=== PATIENT | male | born 1990 | race Caucasian/White ===

== ENCOUNTER 2020-05-31 00:01 | Emergency (ER) | payer SELFPAY ==
[~2020-05-31] VITALS: Ht 180.3 cm; Wt 93.2 kg
[2020-05-31 00:01] VITALS: BP 146/83
--- NOTE | 2020-05-31 00:03 | PHYS DOC ---
Past History Past Medical History: No Pertinent History, Bronchitis, Pneumonia Past Surgical History: No Surgical History Smoking: Cigarettes, Greater than 1 pack/day Alcohol Use: Occasionally Drug Use: None General Adult HPI: HPI: " I been sick since sunday.. coughing up stuff,,.. wheezing.. ..I do somke...".." Some stuff is coming up... but it almost like I got walking pneumonia or bronchitis..." Patient is a 30 year old male who presents with above hx and complaints of persistent cough with minimal production. Patient has had subjective feelings of fever. Patient has had previous episodes of bronchitis. Patient does smoke tobacco. No use immunosuppression. No history of recent travel. No specific ill contacts. Patient does work in [employer]. Patient does have a history of some seasonal allergies are most prevalent in the spring. Review of Systems: Review of Systems: Constitutional: Denies fever or chills Eyes: Denies change in visual acuity HENT: Denies nasal congestion or sore throat Respiratory: History of cough and wheezing Cardiovascular: Denies chest pain or edema GI: Denies abdominal pain, nausea, vomiting, bloody stools or diarrhea : Denies dysuria Musculoskeletal: Denies back pain or joint pain Integument: Denies rash Neurologic: Denies headache, focal weakness or sensory changes Endocrine: Denies polyuria or polydipsia Lymphatic: Denies swollen glands Psychiatric: Denies depression or anxiety Family History: Family History: Noncontributory Current Medications: Current Meds: See nursing for home meds Allergies: Allergies: Allergies Coded Allergies Type Severity Reaction Last Updated Verified No Known Drug Allergies 02/24/13 No Physical Exam: PE: Constitutional: Moderate acute distress, non-toxic appearance. [] HENT: Normocephalic, atraumatic, bilateral external ears normal, oropharynx mo ist, no oral exudates, nose swollen turbinates clear rhinorrhea. Eyes: PERRLA, EOMI, conjunctiva normal, no discharge. [] Neck: Normal range of motion, no tenderness, supple, no stridor. [] Cardiovascular:Heart rate regular rhythm, no murmur [] Lungs & Thorax: Bilateral breath sounds equal apex with scattered wheezes on auscultation [] occasional coughing spasms Abdomen: Bowel sounds normal, soft, no tenderness, no masses, no pulsatile masses. [] Skin: Warm, dry, no erythema, no rash. [] Tattoos Back: No tenderness, no CVA tenderness. [] Extremities: No tenderness, no cyanosis, no clubbing, ROM intact, no edema. [] Neurologic: Alert and oriented X 3, normal motor function, normal sensory func tion, no focal deficits noted. [] Psychologic: Affect anxious, judgement normal, mood normal. [] EKG: EKG: [] Radiology/Procedures: Radiology/Procedures: [] Heart Score: C/O Chest Pain: N/A Risk Factors: Risk Factors: DM, Current or recent (<one month) smoker, HTN, HLP, family history of CAD, obesity. Risk Scores: Score 0 - 3: 2.5% MACE over next 6 weeks - Discharge Home Score 4 - 6: 20.3% MACE over next 6 weeks - Admit for Clinical Observation Score 7 - 10: 72.7% MACE over next 6 weeks - Early Invasive Strategies Course & Med Decision Making: Course & Med Decision Making Pertinent Labs and Imaging studies reviewed. (See chart for details) Patient findings chest x-ray. Patient be treated clinically. Patient push fluids. Patient take Tylenol ibuprofen as needed for discomfort. Patient use MDI 2 puffs 4 times a day. Patient take prednisone 50 mg for 5 days. Patient take Zithromax 250 mg daily for 5 days. Follow-up primary care. Return if any concerns. Encourage patient stop smoking.. Self-isolation while ill. Consider rapid Covid testing. Impression; 1. Upper respiratory infection 2. Bronchitis 3. Tobacco use. [] Dragon Disclaimer: Jeimy Disclaimer: This electronic medical record was generated, in whole or in part, using a voice recognition dictation system. Departure Departure: Scripts Prednisone (PREDNISONE) 50 Mg Tablet 50 MG PO DAILY for reactive air way for 5 Days, #5 TAB Prov: RUBEN BERNAL MD 05/31/20 Azithromycin (ZITHROMAX) 250 Mg Tablet 250 MG PO DAILY for ANTI-BIOTIC for 5 Days, #5 TAB 0 Refills Prov: RUBEN BERNAL MD 05/31/20 Jeimy Disclaimer This chart was dictated in whole or in part using Voice Recognition software in a busy, high-work load, and often noisy Emergency Department environment. It may contain unintended and wholly unrecognized errors or omissions. RUBEN BERNAL MD May 31, 2020 00:03
[2020-05-31] MEDS ORDERED: predniSONE 10 MG TABLET PO ONE (00:45)
[2020-05-31] MEDS ORDERED: ALBUTEROL SULFATE 8GM INHALER. INH ONE (00:45)
[2020-05-31] MEDS ORDERED: AZITHROMYCIN 250 MG TABLET. PO ONE (00:45)
[2020-05-31] MEDS ORDERED: AZIT250T PO (00:49)
[2020-05-31] MEDS ORDERED: PRED50TA PO (00:49)
== END 2020-05-31 01:00 | disposition home or self-care (01) ==
LOC: ER 00:01
DX: J40 Bronchitis, not specified as acute or chronic (principal); J06.9 Acute upper respiratory infection, unspecified; Z72.0 Tobacco use
CPT/HCPCS: 99283; J7512; 99284